=== PATIENT | male | born 2000 | race Hispanic/Latino ===

== ENCOUNTER 2020-07-02 15:40 | Emergency (ER) | payer SELFPAY ==
--- NOTE | 2020-07-02 16:31 | RAD ---
Right ankle 3 views: 07/02/2020 COMPARISON: None HISTORY: Injury, trauma, swelling, pain FINDINGS: Lateral and medial soft tissue swelling noted. The talar dome and ankle mortise appear inta ct. No displaced fracture or evidence of dislocation is noted. IMPRESSION: Prominent soft tissue swelling with no displaced fracture or dislocation seen.
[2020-07-02] MEDS ORDERED: HYDROcodone/Acetaminophen 5/325 mg Tablet ONE (18:15)
--- NOTE | 2020-07-02 19:42 | RAD ---
RADIOGRAPH RIGHTLEG TIBIA-FIBULA 2 VIEWS: DATE: 07/02/2020 HISTORY: Traumatic injury to Right leg in 20-year-old male. This study was in the "anomalies" list, and therefore the radiologist was not aware of it, hence the delayed dictation. FINDINGS: There is no evidence of fracture of tibia or fibula. IMPRESSION: Negative.
--- NOTE | 2020-07-02 19:43 | RAD ---
RADIOGRAPH RIGHT KNEE 4VIEWS: DATE: 07/02/2020 HISTORY: 20-year-old male status post acute traumatic injury to right knee This study was in the "anomalies" list, and therefore the radiologist was not aware of it, hence the delayed dictation. FINDINGS: There is no evidence of fracture or dislocation. There is no evidence of periostitis, permeative lesi on, osteolytic lesion, or osteoblastic lesion. The joint spaces are maintained without erosions or significant osteophytes. In the suprapatellar space, there is a joint effusion. IMPRESSION: 1. Joint effusion. 2. Otherwise negative.
== END 2020-07-02 20:22 | disposition home or self-care (01) ==
LOC: EDBD 15:40 → ERS 15:40
DX: M25.561 Pain in right knee (principal); M25.571 Pain in right ankle and joints of right foot; Z87.891 Personal history of nicotine dependence